=== PATIENT | male | born 1995 | race Caucasian/White ===

== ENCOUNTER 2024-03-18 20:59 | Emergency (ER) | payer OTHER ==
[~2024-03-18] VITALS: Ht 170.2 cm; Wt 63.5 kg
[2024-03-18 21:19] VITALS: BP 116/76; PULSE 60; RESP 16; TEMP 97.2; O2SAT 100
[2024-03-18] MEDS: IBUPROFEN 600 MG TAB PO ONE (22:19)
[2024-03-18] MEDS ORDERED: SERT50TA PO (23:04)
== END 2024-03-18 23:06 | disposition home or self-care (01) ==
LOC: MED 20:59
DX: F32.A Depression, unspecified (principal); Z79.899 Other long term (current) drug therapy; Z59.00 Homelessness unspecified
CPT/HCPCS: 99283